=== PATIENT | male | born 1960 | race Two or more races ===

== ENCOUNTER 2017-08-01 09:46 | Emergency (ER) | payer MEDICARE, MEDICAID ==
[~2017-08-01] VITALS: Ht 172.7 cm; Wt 80.5 kg
[~2017-08-01 09:46] MED LIST: ALBU18HF2 IH; ATOR40TA PO; CITA20TA11 PO; HCTZ25T PO; METOPROLOL ER PO; NOR5T PO; PRED20TA PO; WEL100T PO
[2017-08-01] MEDS ORDERED: DOXY100C43 PO (11:29)
[2017-08-01 12:06] VITALS: BP 147/83
== END 2017-08-01 12:08 | disposition home or self-care (01) ==
LOC: ER 09:46
DX: J34.0 Abscess, furuncle and carbuncle of nose (principal); M25.511 Pain in right shoulder; E78.00 Pure hypercholesterolemia, unspecified; I10 Essential (primary) hypertension; J44.9 Chronic obstructive pulmonary disease, unspecified; F17.200 Nicotine dependence, unspecified, uncomplicated; F12.10 Cannabis abuse, uncomplicated
CPT/HCPCS: 99283

== ENCOUNTER 2017-08-14 14:51 | Emergency (ER) | payer MEDICARE, MEDICAID ==
[~2017-08-14] VITALS: Ht 172.7 cm; Wt 88.7 kg
[~2017-08-14 14:51] MED LIST changes: +DOXY100C43 PO
[2017-08-14] MEDS ORDERED: AMOX-422 PO (15:10)
[2017-08-14] MEDS ORDERED: TETanus/Pertussis (Acell)/Diphther VAC/PF (Tdap-Adult) 0.5ml syringe IM ONE (15:10)
[2017-08-14 15:54] VITALS: BP 160/103
== END 2017-08-14 15:56 | disposition home or self-care (01) ==
LOC: ER 14:52
DX: S61.451A Open bite of right hand, initial encounter (principal); E78.00 Pure hypercholesterolemia, unspecified; I10 Essential (primary) hypertension; F17.200 Nicotine dependence, unspecified, uncomplicated; J44.9 Chronic obstructive pulmonary disease, unspecified; F12.10 Cannabis abuse, uncomplicated; Z79.899 Other long term (current) drug therapy; W54.0XXA Bitten by dog, initial encounter; Y93.89 Activity, other specified; Y92.89 Other specified places as the place of occurrence of the external cause; Y99.8 Other external cause status
CPT/HCPCS: 90471; 90715; 99283; 99284

== ENCOUNTER 2024-08-21 18:30 | Emergency (ER) | payer MEDICARE, MEDICAID ==
[~2024-08-21] VITALS: Ht 172.7 cm; Wt 129.0 kg
[~2024-08-21 18:30] MED LIST changes: -CITA20TA11 PO; +CITA20TA28 PO; -DOXY100C43 PO; -HCTZ25T PO; +HYDR25TA5 PO
[2024-08-21 19:29] LABS: BASOPHILS # (AUTO) 0.2 X10'3 (0-0.2); BASOPHILS % (AUTO) 1.1 % (0-1); EOSINOPHILS # (AUTO) 0.1 X10'3 (0-0.9); EOSINOPHILS % (AUTO) 0.8 % (0-6); HEMATOCRIT 39.6 % (42.0-52.0); HEMOGLOBIN 12.8 g/dl (14.0-17.9); LYMPHOCYTES # (AUTO) 2.5 X10'3 (1.1-4.8); LYMPHOCYTES % (AUTO) 17.6 % (21-51); MEAN CORPUSCULAR HEMOGLOBIN 26.2 PG (27.0-31.0); MEAN CORPUSCULAR HGB CONC 32.4 g/dL (33.0-36.5); MEAN CORPUSCULAR VOLUME 80.7 FL (78-98); MEAN PLATELET VOLUME 7.4 FL (7.4-10.4); MONOCYTES # (AUTO) 1.2 X10'3 (0-0.9); MONOCYTES % (AUTO) 8.5 % (2-12); NEUTROPHILS # (AUTO) 10.2 X10'3 (1.8-7.7); PLATELET COUNT 354 X10'3 (140-440); RED BLOOD COUNT 4.91 X10'6 (4.70-6.10); WHITE BLOOD COUNT 14.2 X10'3 (4.5-11.0)
[2024-08-21 19:43] LABS: ALANINE AMINOTRANSFERASE 21 U/L (12-78); ALBUMIN 3.3 G/DL (3.4-5.0); ALBUMIN/GLOBULIN RATIO 0.7 (1.1-1.5); ALKALINE PHOSPHATASE 42 IU/L (46-116); ANION GAP 12 (8-16); ASPARTATE AMINO TRANSFERASE 11 U/L (10-37); BILIRUBIN,TOTAL 0.4 MG/DL (0.1-1.0); BLOOD UREA NITROGEN 33 MG/DL (7-18); BUN/CREATININE RATIO 16.7 (10.0-20.0); CALCIUM 9.1 MG/DL (8.5-10.1); CHLORIDE 100 MMOL/L (99-107); CREATININE 1.98 MG/DL (0.60-1.10); GLUCOSE 94 MG/DL (70-104); POTASSIUM 4.1 MMOL/L (3.5-5.1); SODIUM 140 MMOL/L (135-145); TOTAL CARBON DIOXIDE 27.6 MMOL/L (24-32); TOTAL PROTEIN 7.9 G/DL (6.4-8.2); eCRCL 37 ML/MIN; eGFR 34 ML/MIN
[2024-08-21 19:52] LABS: PRO BRAIN NATRIURETIC PEPTIDE 266 PG/ML (0-125)
[2024-08-21] MEDS: acetaminophen 325mg tablet PO ONE (21:37)
[2024-08-21 21:43] VITALS: BP 128/80; PULSE 92; RESP 14; TEMP 98; O2SAT 96
== END 2024-08-21 21:47 | disposition home or self-care (01) ==
LOC: ER 18:30
DX: R60.0 Localized edema (principal); E78.00 Pure hypercholesterolemia, unspecified; I11.0 Hypertensive heart disease with heart failure; I50.9 Heart failure, unspecified; J44.9 Chronic obstructive pulmonary disease, unspecified; F32.A Depression, unspecified; F12.90 Cannabis use, unspecified, uncomplicated
CPT/HCPCS: 36415; 71045; 80053; 83880; 84484; 85025; 99284